=== PATIENT | female | born 1960 ===

== ENCOUNTER → 2021-11-04 12:58 | Outpatient (CLI) | payer OTHER, SELFPAY ==
--- NOTE | ~2021-11-04 | MR_ITS ---
EXAMINATION: MR brain/brain stem wo/w con DATE: 11/04/2021 13:58 INDICATION: Other abnormalities of gait and mobility. Headache. TECHNIQUE: Multisequence magnetic resonance imaging (MRI) of the brain and brainstem was performed wi thout and with 19 mL MultiHance intravenous contrast. COMPARISON: Brain MRI 08/20/2010 FINDINGS: There are scattered areas of nonspecific increased T2-weighted signal intensity in the cere bral white matter, which is within normal limits for the patient's age. There is no intracranial hemo rrhage, acute infarction, or abnormal intracranial mass lesion. The ventricles are normal in size. Th ere is mild mucosal thickening in the paranasal sinuses. The orbits are normal. The mastoid air cells are normal. IMPRESSION: 1. Normal aging brain. Reviewed, dictated and finalized at location A. IMPRESSION: 1. Normal aging brain.
--- NOTE | ~2021-11-04 | MR_ITS ---
EXAMINATION: MR lumbar spine wo con DATE: 11/04/2021 13:57 INDICATION: Other symptoms and signs involving the musculoskeletal system. Low back pain. TECHNIQUE: Magnetic resonance imaging (MRI) of the lumbar spine was performed without intravenous con trast. Sequences included sagittal T2-weighted FSE, sagittal T2-weighted FS FSE, sagittal T1-weighted FSE, and axial T2-weighted FSE. COMPARISON: None FINDINGS: There is 3 degrees dextrocurvature of lumbar spine. Vertebral body heights are normal. Ther e is severely decreased disc height at L4-L5 and L5-S1. The distal spinal cord signal intensity is no rmal. The conus medullaris is at T12-L1. The following disc levels are specifically discussed: L1-L2: There is a central protrusion. There is moderate bilateral facet joint osteoarthritis. There i s no neural foraminal stenosis. There is no central canal stenosis. L2-L3: There is a left foraminal protrusion. There is moderate bilateral facet joint osteoarthritis. There is mild left neural foraminal stenosis. There is no central canal stenosis. L3-L4: There is a left foraminal protrusion. There is severe bilateral facet joint osteoarthritis. Th ere is mild left neural foraminal stenosis. There is no central canal stenosis. L4-L5: The disc is bulging and has an annular fissure. There is moderate bilateral facet joint osteoa rthritis. There is mild bilateral neural foraminal stenosis. There is mild central canal stenosis. L5-S1: The disc is bulging and has an annular fissure. There is mild bilateral facet joint osteoarthr itis. There is mild bilateral neural foraminal stenosis. There is mild central canal stenosis. IMPRESSION: 1. Severe lumbar spondylosis. Reviewed, dictated and finalized at location A.
[2021-11-04 13:28] LABS: Estimated Glomerular Filt Rate > 60
== END ==
PROVIDERS: PCP Family Medicine; Visit Provider Family Medicine
DX: R26.89 Other abnormalities of gait and mobility (principal); R29.898 Other symptoms and signs involving the musculoskeletal system; M47.816 Spondylosis without myelopathy or radiculopathy, lumbar region
CPT/HCPCS: 70553; 72148; A9577

== ENCOUNTER 2022-05-05 10:12 | Outpatient (CLI) | payer OTHER, SELFPAY ==
--- NOTE | 2022-05-05 10:43 | ECG_ITS ---
Measurements Intervals [place] Rate: 58 P: 41 [place]: 163 QRS: -28 QRSD: 93 T: -12 QT: 419 QTc: 412 Interpretive Statements SINUS BRADYCARDIA LOW QRS VOLTAGE IN PRECORDIAL LEADS [QRS DEFLECTION < 1.0 mV IN CHEST LEADS] MODERATE T-WAVE ABNORMALITY, CONSIDER ANTEROLATERAL ISCHEMIA [-0.1+ mV T WAVE IN I/aVL/V5/V6] NO PREVIOUS ECG AVAILABLE FOR COMPARISON Electronically Signed On 05-05-2022 14:57:08 CDT by Yanira Gil M.D.
== END 2022-05-05 10:13 | disposition home or self-care (01) ==
LOC: ANHCARD 10:14
PROVIDERS: PCP Family Medicine; Visit Provider Family Medicine
DX: R07.89 Other chest pain (principal)
CPT/HCPCS: 93005

== ENCOUNTER 2022-08-18 01:43 | Day surgery (SDC) | payer OTHER, SELFPAY ==
[2022-08-02 13:21] VITALS: BMI 37.9
--- NOTE | 2022-08-17 11:18 | PM.HPGS ---
History of Present Illness History of Present Illness Consent: Risks, benefits, and alternatives have been discussed and questions answered. Patient agrees to proceed with procedure. Chief complaint: neoplasm screening Narrative: Katia Quiñones is a 62 year old female Referred for colon cancer screening. Her last colonoscopy was 10 years ago. One small hyperplastic polyp was removed at that time. Review of Systems Review of Systems: All systems reviewed & are unremarkable except as noted in HPI and below PMFSH Past Medical History Medical History Abnormal fasting glucose Blood sugar normal at 97 on 10/22/2021. Abnormality of gait due to impairment of balance MRI of the brain and brainstem on 11/04/2021 was normal. MRI of the lumbar spine on 11/04/2021 revealed severe lumbar spondylosis. Atypical chest pain (04/29/22) EKG on 05/05/2022 reveals mild sinus bradycardia with moderate T-wave changes with possible anterior ischemia. Nuclear stress test 07/14/2022 was negative. Cleared by website/blog editor. No follow-up needed 07/27/2022. BMI 37.0-37.9, adult BMI 38.0-38.9,adult Breast cancer screening by mammogram Normal mammogram 12/03/2021. Fever blister Irritable bowel syndrome with mixed bowel habits Mixed hyperlipidemia Cholesterol 256, triglycerides 93, HDL 92, LDL 144 on 10/22/2021. Obesity (BMI 30-39.9) Weakness of both lower extremities MRI of the brain and brainstem normal on 11/04/2021 with MRI of the lumbar spine with severe lumbar spondylosis. Family History Family History Mother Hypertension, Onset Age: 76 Family history of congestive heart failure Father Acute myocardial infarction, Onset Age: 47 Other Family history of arthritis Family history of cardiovascular disease Social History Social History Years smoked: 10 Smoking status: Former smoker Tobacco type: cigarettes Smoking end date: 07/24/99 Alcohol intake: never Substance use: never Substance use type: does not use Living arrangements: alone Meds Home Medications and Allergies Home Medications Medication Instructions Recorded Confirmed Type valacyclovir 1 gram tablet 1,000 mg PO .COMPLEX PRN fever 11/21/19 08/18/22 Rx blister #30 tabs carbamazepine 200 mg 400 mg PO BID #360 tabs 10/07/21 08/18/22 Rx tablet,extended release,12 hr meloxicam 15 mg tablet 15 mg PO DAILY PRN pain #90 tabs 02/28/22 08/18/22 Rx lamotrigine 50 mg tablet,extended 50 mg PO . b.i.d. #20 tabs 04/11/22 08/18/22 Rx release 24 hr escitalopram oxalate 10 mg tablet 10 mg PO DAILY #90 tabs 05/04/22 08/18/22 Rx omeprazole 40 mg capsule,delayed 40 mg PO DAILY #90 caps 05/04/22 08/18/22 Rx release Allergies Allergy/AdvReac Type Severity Reaction Status Date / Time No Known Allergies Allergy Verified 08/18/22 07:39 Exam Const: General: alert Orientation/consciousness: patient oriented x3 Resp: Auscultation: clear to auscultation bilaterally Cardio: Rhythm: regular rhythm GI: GI Palp: Yes Soft to palpation and No Tenderness to palpation present (GI) Neuro: General: patient oriented x3 Assessment and Plan Assessment and plan (1) Colon cancer screening: Code(s): Z12.11 - Encounter for screening for malignant neoplasm of colon Status: Acute Assessment and Plan: Colonoscopy with possible biopsy or polypectomy or cautery or injection of substances.
[2022-08-18 07:32] VITALS: BP 144/90; PULSE 70; RESP 18; TEMP 36.3; O2SAT 100; BMI 36.6
[2022-08-18] MEDS: LACTATED RINGERS 1,000 ML 150 ML IV CONT (07:50)
--- NOTE | 2022-08-18 08:20 | WPDANESEPPF ---
Anes - Initial Pre Proc Eval Procedure: Operation Date: 08/18/22 08:30 Proposed Procedures p Colonoscopy - Gamaliel Landrum MD Date/Time: 08/18/22 08:20 Surgeon: Gamaliel Landrum MD Pre Op Diagnosis: neoplasm screening Patient Data Age: 62 Gender: F Height: 1.57 m Weight: 90.7 kg Last Vital Signs Temp 97.4 F L 08/18/22 07:32 Pulse 70 08/18/22 07:32 Resp 18 08/18/22 07:32 BP 144/90 H 08/18/22 07:32 Pulse Ox 100 08/18/22 07:32 O2 Del Method Room Air 08/18/22 07:32 Allergies Allergy/AdvReac Type Severity Reaction Status Date / Time No Known Allergies Allergy Verified 08/18/22 07:39 Home Medications Medication Instructions Recorded Confirmed Type valacyclovir 1 gram tablet 1,000 mg PO .COMPLEX PRN fever 11/21/19 08/18/22 Rx blister #30 tabs carbamazepine 200 mg 400 mg PO BID #360 tabs 10/07/21 08/18/22 Rx tablet,extended release,12 hr meloxicam 15 mg tablet 15 mg PO DAILY PRN pain #90 tabs 02/28/22 08/18/22 Rx lamotrigine 50 mg tablet,extended 50 mg PO . b.i.d. #20 tabs 04/11/22 08/18/22 Rx release 24 hr escitalopram oxalate 10 mg tablet 10 mg PO DAILY #90 tabs 05/04/22 08/18/22 Rx omeprazole 40 mg capsule,delayed 40 mg PO DAILY #90 caps 05/04/22 08/18/22 Rx release Patient hx anesthesia problems: none Family hx anesthesia problems: none Results Review: All pre-operative results and documents have been reviewed as part of the pre-operative evaluation. [facility] Past Medical History Medical History (Updated 08/17/22 @ 11:19 by Gamaliel Landrum MD) Abnormal fasting glucose Blood sugar normal at 97 on 10/22/2021. Abnormality of gait due to impairment of balance MRI of the brain and brainstem on 11/04/2021 was normal. MRI of the lumbar spine on 11/04/2021 revealed severe lumbar spondylosis. Atypical chest pain (04/29/22) EKG on 05/05/2022 reveals mild sinus bradycardia with moderate T-wave changes with possible anterior ischemia. Nuclear stress test 07/14/2022 was negative. Cleared by straw hat brim raiser operator. No follow-up needed 07/27/2022. BMI 37.0-37.9, adult BMI 38.0-38.9,adult Breast cancer screening by mammogram Normal mammogram 12/03/2021. Fever blister Irritable bowel syndrome with mixed bowel habits Mixed hyperlipidemia Cholesterol 256, triglycerides 93, HDL 92, LDL 144 on 10/22/2021. Obesity (BMI 30-39.9) Weakness of both lower extremities MRI of the brain and brainstem normal on 11/04/2021 with MRI of the lumbar spine with severe lumbar spondylosis. Family History Family History (Updated 02/07/19 @ 09:45 by DOCTOR UNKNOWN) Mother Hypertension, Onset Age: 76 Family history of congestive heart failure Father Acute myocardial infarction, Onset Age: 47 Other Family history of arthritis Family history of cardiovascular disease Social History Social History Years smoked: 10 Smoking status: Former smoker Tobacco type: cigarettes Smoking end date: 07/24/99 Alcohol intake: never Substance use: never Substance use type: does not use Living arrangements: alone Anes - Eval Final PreProcedure Day of Procedure 08/18/22 08:20 Patient weight: obese Airway: Mallampati scale class II ASA classification: III Anesthesia type and monitoring: general GIVS and standard monitoring Results Review: All pre-operative results and documents have been reviewed as part of the pre-operative evaluation. Informed Consent: The patient's anesthetic plan and its attendant risks and benefits were discussed with the patient/family/POA. Questions were solicited and answers provided to the satisfaction of the patient/family/POA.
[2022-08-18 08:56] VITALS: BP 127/68; PULSE 59; RESP 16; O2SAT 99
[2022-08-18 09:06] VITALS: BP 131/77; PULSE 62; RESP 16; O2SAT 99
[2022-08-18 09:16] VITALS: BP 134/77; PULSE 58; RESP 18; O2SAT 100
== END 2022-08-18 09:27 | disposition home or self-care (01) ==
PROVIDERS: PCP Family Medicine; Visit Provider Internal Medicine Gastroenterology
PROC: 0DJD8ZZ Inspection of Lower Intestinal Tract, Via Natural or Artificial Opening Endoscopic (ICD-10-PCS; CPT 45378; principal; 2022-08-18 08:30)
DX: Z12.11 Encounter for screening for malignant neoplasm of colon (principal); K57.30 Diverticulosis of large intestine without perforation or abscess without bleeding; K63.5 Polyp of colon; K62.1 Rectal polyp; K58.2 Mixed irritable bowel syndrome; E78.2 Mixed hyperlipidemia; Z87.891 Personal history of nicotine dependence; E66.9 Obesity, unspecified; Z68.36 Body mass index [BMI] 36.0-36.9, adult
CPT/HCPCS: 45380; 88305; J2704; J7120

== ENCOUNTER → 2023-04-11 13:20 | Outpatient (CLI) | payer OTHER, SELFPAY ==
--- NOTE | ~2023-04-11 | DEXA_ITS ---
Bone Density Report Name: JOAQUINA BEACH Age: 63 Sex: Female Ethnicity: White Date of : 1960 Indication: postmenopausal; screening for osteoporosis; seizure disorder; Referring Provider: JOSE HOFF Study: Bone densitometry was performed. Exam Date: April 11, 2023 Accession number: [id number] Bone Density: Region BMD T-score Z-score Classification AP Spine (L1-L4) 1.014 -0.3 1.2 Normal Femoral Neck (Left) 0.750 -0.9 0.4 Normal Total Hip (Left) 0.869 -0.6 0.4 Normal Femoral Neck (Right) 0.674 -1.6 -0.3 Osteopenia Total Hip (Right) 0.818 -1.0 0.0 Normal Total Hip Mean 0.844 -0.8 0.2 Normal World Health Organization criteria for BMD impression classify patients as: Normal (T-score at or above -1.0), Osteopenia (T-score between -1.0 and -2.5), or Osteoporosis (T-score at or below -2.5). 10-year Fracture Risk(1): Major Osteoporotic Fracture 7.6% Hip Fracture 0.6% Reported Risk Factors: [place] (), Neck BMD=0.674, BMI=36.1 (1) FRAX(R) Version 3.08. Fracture probability calculated for an untreated patient. Fracture probability may be lower if the patient has received treatment. Clinical Information Provided by Patient: Has used the following medications: Vitamin D Has the following medical conditions: Any Seizure Disorders Patient maximum height was 62 Menopause Age: 51 No regular weight bearing exercise Drinks caffeinated beverages Onset of menses at age 15 Number of children 2 Impression: The patient has low bone mass, based on the Right Femoral Neck T-score. The patient has an estimated ten-year risk of hip fracture of 0.6% and an estimated ten-year risk of major fracture of 7.6%, based on the WHO FRAX algorithm. Discussion: BONE DENSITY IS LOW AT ONE OR MORE SKELETAL SITES. This patient's lowest T-score is low at one or more skeletal sites. It meets the World Health Organization's (WHO) criteria for ?low bone mass? (T-score between -1.0 and -2.5). The patient's 10-year risk of fracture as calculated by FRAX is less than the threshold where pharmacological therapy is recommended by the National Osteoporosis Foundation (NOF). However, all treatment decisions require clinical judgment and consideration of individual patient factors, including patient preferences, comorbidities, previous drug use, risk factors not captured in the FRAX model (e.g., frailty, falls, vitamin D deficiency, increased bone turnover, interval significant decline in bone density) and possible under or overestimation of fracture risk by FRAX. The patient should follow a healthful lifestyle (good nutrition with adequate calcium and vitamin D, and appropriate weight-bearing exercise). Follow-Up: Consider repeating this study in 2 to 3 years to reassess this patient's status, or sooner if there i
--- NOTE | ~2023-04-11 | MM_ITS ---
EXAMINATION: MM screening maria e BI w bruce HISTORY: Screening TECHNIQUE: Craniocaudal and mediolateral oblique 3-D tomosynthesis images were obtained and synthetic 2-D images were generated. CAD analysis was submitted and interpreted. COMPARISON: No prior mammogram is available for comparison at this institution. BREAST PARENCHYMAL COMPOSITION: There are scattered areas of fibroglandular density. FINDINGS: There is no evidence of suspicious mass, calcification, or architectural distortion to sugg est malignancy in either breast. There has been no suspicious interval change. IMPRESSION: 1. No mammographic evidence of malignancy. 2. Recommend routine screening mammography in one year. BI-RADS Category 1: Negative Reviewed, dictated and finalized at location A.
== END ==
PROVIDERS: PCP Family Medicine; Visit Provider Obstetrics & Gynecology Gynecology
DX: Z12.31 Encounter for screening mammogram for malignant neoplasm of breast (principal); Z78.0 Asymptomatic menopausal state; M85.851 Other specified disorders of bone density and structure, right thigh
CPT/HCPCS: 77063; 77067; 77080